=== PATIENT | male | born 1965 | race Caucasian/White ===

== ENCOUNTER 2020-08-07 10:21 | Emergency (ER) | payer OTHER ==
[~2020-08-07] VITALS: Ht 170.2 cm; Wt 78.0 kg
[2020-08-07 10:24] VITALS: BP 135/86
--- NOTE | 2020-08-07 11:50 | NUR ---
CALLED PT IN THE LOBBY AND THE TENT. PT WAS NOT FOUND. PATIENT LEFT WITHOUT BEING SEEN BY DR. HERNÁNDEZ. NO FURTHER CARE PROVIDED FOR PATIENT.
== END 2020-08-07 11:35 | disposition left against medical advice (07) ==
LOC: MED 10:21
DX: R53.1 Weakness (principal); Z53.21 Procedure and treatment not carried out due to patient leaving prior to being seen by health care provider
CPT/HCPCS: 82948; 99281; 99282